=== PATIENT | male | born 1975 | race Caucasian/White ===

== ENCOUNTER 2016-07-03 11:24 | Outpatient (CLI) | payer OTHER ==
--- NOTE | 2016-07-03 12:06 | DIAGNOSTIC IMAGING REPORT ---
PROCEDURE: CT ABD/PELVIS WITH CONTRAST CLINICAL INDICATION: Left lower quadrant pain x 1 week, initial encounter TECHNIQUE: 125 ml of Isovue 300 were injected intravenously and axial images were obtained of the entire abdomen and pelvis with sagittal and coronal reformations. COMPARISON: None. FINDINGS: ABDOMEN: Lung base are clear. Heart size is normal. Calcified hepatic granulomas. Gallbladder, pancreas, spleen, adrenal glands and kidneys are normal. Normal abdominal aorta. Nonspecific bowel gas pattern. PELVIS: Normal appendix. Midsigmoid short segment demonstrating wall thickening, several diverticula and mild inflammatory changes. Minimal free fluid and there is no abscess or free air. Normal prostate and bladder. No suspicious osseous lesions IMPRESSION: 1. Mild sigmoid diverticulitis. No abscess or free air 2. Results discussed with Dr. Shannon All CT scans at this facility use dose modulation, iterative reconstruction, and/or weight-based dosing when appropriate to reduce radiation dose to as low as reasonably achievable.
== END 2016-07-03 23:00 ==
LOC: CT SRH 11:24 → LAB SRH 11:24 → CT SRH 12:00
DX: R10.9 Unspecified abdominal pain (principal)
CPT/HCPCS: 90074; 90100; 91643; 95059